=== PATIENT | female | born 1990 | race Caucasian/White ===

== ENCOUNTER 2016-07-30 05:10 | Inpatient (IN) | payer BC ==
[~2016-07-30] VITALS: Ht 162.6 cm; Wt 126.3 kg
[2016-07-30] MEDS ORDERED: PRENTAB26 PO (06:04)
[2016-07-30 06:05] VITALS: Ht 162.6 cm; Wt 126.3 kg
[2016-07-30] MEDS ORDERED: LACTATED RINGER'S 1000ML 1,000 ML IV PRN (06:12)
[2016-07-30] MEDS ORDERED: LACTATED RINGER'S 1000ML 500 ML IV PRN ×2 (06:39→10:45)
[2016-07-30] MEDS ORDERED: OXYTOCIN 30 UNITS/500ML NSS IV PRN ×2 (06:45→18:00)
[2016-07-30] MEDS: LACTATED RINGER'S 1000ML 1,000 ML IV SCH ×3 (06:52→16:12)
[2016-07-30 06:55] LABS: HEMATOCRIT 38.1 % (37-47); MEAN CELL VOLUME 83.9 fL (80-100); MEAN CORPUSCULAR HEMOGLOBIN 28.9 pg (25-34); MEAN CORPUSCULAR HGB CONC 34.4 g/dl (32-36); PLATELET COUNT 304 K/uL (130-400); RED BLOOD COUNT 4.54 M/uL (4.2-5.4); WHITE BLOOD COUNT 14.28 K/uL (4.8-10.8)
[2016-07-30] MEDS ORDERED: INFLUENZA ADMINISTRATION CHARGE ONE (08:00)
[2016-07-30] MEDS ORDERED: INFLUENZA VIRUS QUAD VACCINE 0.5 ML SYR IM. ONE (08:00)
[2016-07-30] MEDS ORDERED: EpHEDrine SULFATE INJ 50 MG/ML AMP ONE (09:54)
[2016-07-30] MEDS ORDERED: FENTANYL 2MCG/ML ROPIV 1.25MG/ML 100ML BAG EPI ONE (09:54)
[2016-07-30] MEDS ORDERED: BUPIVACAINE 0.25% 30 ML VIAL ONE (09:54)
[2016-07-30] MEDS: FENTANYL CITRATE INJ 50 MCG/1 ML 2 ML VIAL ONE ×2 (10:00→10:37)
[2016-07-30] MEDS ORDERED: ONDANSETRON INJ 2 MG/ML 2 ML VIAL IV PRN (10:45)
[2016-07-30] MEDS ORDERED: NALOXONE HCL INJ 0.4 MG/1 ML VIAL/CARP IV PRN (10:45)
[2016-07-30] MEDS ORDERED: FENTANYL 2MCG/ML ROPIV 1.25MG/ML 100ML BAG EPI PRN (10:45)
[2016-07-30] MEDS ORDERED: NALBUPHINE HCL INJ 10 MG/ML AMP IV PRN (10:45)
[2016-07-30] MEDS ORDERED: DiphenhydrAMINE HCL 50 MG/ML VIAL IV PRN (10:45)
[2016-07-30] MEDS ORDERED: NALOXONE HCL INJ 1 MG in SODIUM CHLORIDE 0.9% 1000ML 1,000 ML IV PRN (10:45)
[2016-07-30] MEDS ORDERED: EpHEDrine SULFATE INJ 50 MG/ML AMP IV PRN (10:45)
[2016-07-30] MEDS ORDERED: BENZOCAINE 20% AER SPR 82.5 GM CAN EXT PRN (18:00)
[2016-07-30] MEDS ORDERED: LANOLIN OINT EXT PRN ×2 (18:00)
[2016-07-30] MEDS ORDERED: SUPERCREAM 0.870 % 15GM JAR EXT PRN (18:00)
[2016-07-30] MEDS ORDERED: HYDROCORTISONE ACETATE 25 MG SUPP PR PRN (18:00)
[2016-07-30] MEDS ORDERED: ACETAMINOPHEN/CODEINE 300/30MG TAB PO PRN ×2 (18:00)
--- NOTE | 2016-07-30 18:25 | Anesthesia Procedure Note ---
Anesthesia Epidural Removal Nt Date & Time Jul 30, 2016 at 18:24 Vital Signs Pain Intensity: 0.0 Notes Mental Status: alert / awake / arousable, participated in evaluation Nausea / Vomiting: adequately controlled Pain: adequately controlled Airway Patency, RR, SpO2: stable & adequate BP & HR: stable & adequate Hydration State: stable & adequate Neuraxial Anesthesia: was administered, sensory block is resolving Anesthetic Complications: no major complications apparent, pt satisfied with anesthetic care Epidural: removed without complications, with tip intact
[2016-07-30] MEDS: DOCUSATE SODIUM 100 MG CAP PO SCH ×2 (20:00→21:00)
--- NOTE | 2016-07-30 20:04 | DELIVERY SUMMARY ---
DATE OF OPERATION: 07/30/2016 DELIVERING SURGEON: Heide French DO PREOPERATIVE DIAGNOSES: 1. A 26-year-old GI, P0 at 38 weeks 0 days. 2. Premature rupture of membranes. 3. 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 4. History of chlamydia during with negative test of cure at 36 weeks. POSTDELIVERY DIAGNOSES: Same. FINDINGS: Viable female , Apgars 9 and 10, weight pending. ESTIMATED BLOOD LOSS: 400 mL. PROCEDURE: Spontaneous vaginal delivery with repair of first degree perineal laceration. DESCRIPTION OF DELIVERY: The patient progressed to complete with epidural anesthesia. She spontaneously vaginally delivered over an intact perineum a viable female in the left occiput anterior position. The head delivered, followed by a nuchal cord x1 that was easily reduced with a compound hand. The anterior shoulder was delivered, followed by the posterior shoulder, followed by the body. The baby was warmed and dried and a spontaneous cry was heard. The baby was placed on mom's abdomen and the cord was doubly clamped and cut. A segment was sent for cord gases. Cord blood was obtained. The placenta was then delivered spontaneously intact with a 3-vessel cord. Pitocin was started. The uterus became firm. The uterus and vagina were cleared of all clots and debris. The cervix, vagina and perineum were inspected and a first degree perineal laceration was noted, this was repaired in standard fashion with 3-0 Vicryl. Excellent hemostasis was observed. All instrument, sponge, and needle counts were correct x2 at the conclusion of the delivery. Mom and baby recovered in the room in stable and good condition. I attest to the content of the Intraoperative Record and any orders documented therein. Any exceptio ns are noted below.
[2016-07-30 20:15] VITALS: BP 129/63; PULSE 109; TEMP 36.8
[2016-07-31 03:25] VITALS: BP 115/71; PULSE 92; TEMP 36.4
--- NOTE | 2016-07-31 07:44 | Progress Note ---
Subjective Jul 31, 2016. Subjective conversation w/ patient, physical exam Ambulation: ambulating normally Voiding: no voiding problems Passing Gas: Yes Diet Tolerance: Clear Liquids Lochia: Small Feeding Type: Breast Feeding Pain: Pain well controlled Review of Systems Constitutional: No fever Respiratory: No cough Abdomen: No pain Female : No dysuria Objective Vital Signs Date Time Temp Pulse Resp B/P Pulse Ox O2 Delivery O2 Flow Rate FiO2 07/31/16 03:25 Room Air 07/31/16 03:25 36.4 92 16 115/71 Room Air 07/30/16 20:15 36.8 109 18 129/63 Room Air Physical Exam General Appearance: WELL-APPEARING Abdomen: non tender, soft Fundus: Firm, Relation to Umbilicus (At umbilicus) Extremities: no calf tenderness, + swelling (trace edema in legs) Laboratory Results Last 24 Hours Test 07/31/16 07:30 Assessment and Plan Problem List Medical Problems: (1) Ovarian cyst during Status: Acute (2) Pelvic pain affecting in first trimester, antepartum Status: Acute (3) UTI (urinary tract infection) Status: Acute (4) Vomiting affecting , antepartum Status: Acute Post- Day#: 1 Continue Routine Care: - Vital Signs reviewed and WNL (temp max 36.4) - Blood Type: A+, GBS- , Rubella Immune - Patient doing well clinically - Encourage Ambulation today - Pain well controlled with Motrin - Tolerating PO Diet Well Resident Physician Supervision Note: I was present with Dr. Porter during the history and exam. I discussed the case with the resident and agree with the findings and plan as documented in the note. Any exceptions or clarifications are listed here: PPD#1 doing well. Routine care. Documented By: Heide French
[2016-07-31 07:55] VITALS: BP 120/80; PULSE 88; TEMP 36.8
[2016-07-31] MEDS: DOCUSATE SODIUM 100 MG CAP PO SCH ×2 (09:00→21:13)
[2016-07-31 12:00] VITALS: BP 114/79; PULSE 89; TEMP 36.7
[2016-07-31] MEDS: IBUPROFEN 600 MG TAB PO PRN ×3 (12:08→21:13)
[2016-07-31] MEDS ORDERED: NURSING VERBAL MED ORDER ONE (13:15)
[2016-07-31] MEDS ORDERED: DIPHTHERIA/TETANUS/PERTUSSIS 0.5 ML SYR/VIAL IM. ONE (13:45)
[2016-07-31 15:52] VITALS: BP 108/74; PULSE 83; TEMP 36.6; O2SAT 98
[2016-07-31] MEDS ORDERED: BISACODYL 5 MG TABEC PO SCH (20:00)
[2016-08-01] VITALS: BP 116/76; PULSE 78; TEMP 36.4; O2SAT 98
[2016-08-01] MEDS: IBUPROFEN 600 MG TAB PO PRN (05:57)
--- NOTE | 2016-08-01 06:35 | Progress Note ---
Subjective Aug 01, 2016. Subjective conversation w/ patient, physical exam Ambulation: ambulating normally Voiding: no voiding problems Passing Gas: Yes Diet Tolerance: Regular Diet Lochia: Small Feeding Type: Breast Feeding Pain: No pain reported this morning Review of Systems Constitutional: No chills, No fever Respiratory: No cough, No shortness of breath Cardiac: No chest pain Breast: No breast pain Abdomen: No nausea, No pain, No vomiting Female : No dysuria Objective Vital Signs Date Time Temp Pulse Resp B/P Pulse Ox O2 Delivery O2 Flow Rate FiO2 08/01/16 00:00 98 Room Air 08/01/16 00:00 36.4 78 18 116/76 98 Room Air 07/31/16 15:52 36.6 83 18 108/74 98 Room Air 07/31/16 15:30 Room Air 07/31/16 12:00 36.7 89 16 114/79 Room Air 07/31/16 07:55 36.8 88 18 120/80 Room Air 07/31/16 07:30 Room Air Physical Exam General Appearance: WELL-APPEARING, WD/WN, NO APPARENT DISTRESS Respiratory/Chest: lungs clear, normal breath sounds Cardiovascular: regular rate, rhythm, no gallop, no murmur Abdomen: normal bowel sounds, non tender, soft Fundus: Firm, Relation to Umbilicus (1cm below umbilicus) Extremities: normal range of motion (right inguinal pain, no mass), no calf tenderness Laboratory Results Last 24 Hours Test 07/31/16 07:30 Hemoglobin 12.2 g/dL Hematocrit 36.0 % Assessment and Plan Problem List Medical Problems: (1) Ovarian cyst during Status: Acute (2) Pelvic pain affecting in first trimester, antepartum Status: Acute (3) UTI (urinary tract infection) Status: Acute (4) Vomiting affecting , antepartum Status: Acute Post- Day#: 2 Continue Routine Care: - Vital Signs reviewed and WNL (temp max 36.4) - Blood Type: A+, GBS- , Rubella Immune - Patient doing well clinically - Encourage Ambulation today - Pain well controlled with Motrin - Tolerating PO Diet Well - Discharge today Resident Physician Supervision Note: I interviewed and examined the patient. Discussed with Dr. Porter and agree with findings and plan as documented in the note. Any exceptions or clarifications are listed here: Pt with right hip/inguinal pain, pre-dating the . Discussed NSAID/Ice/Heat. Will re-evaluate at 6 week post visit Documented By: Viral Melendrez
--- NOTE | 2016-08-01 06:36 | Discharge Instructions ---
Discharge Instructions Admission Reason for Admission: LABOR Discharge Discharge Diagnosis / Problem: Vaginal Delivery Discharge Goals Goal(s): Routine recovery after delivery Medications Continue Dispensed Medications: supercream, dermaplast, tucks, lansinoh Activity Recommendations Activity Limitations: per Instructions/Follow-up section . Instructions / Follow-Up Instructions / Follow-Up ACTIVITY RECOMMENDATIONS: * Gradual return to full activity over the next 2-3 weeks. * No lifting - nothing heavier than baby over the next 2-3 weeks. * Do not engage in vigorous exercise, sexual activity or sports until cleared by your physician. * Do not drive or operate any motorized equipment until cleared by your physician. * You may shower/bathe daily. MEDICATIONS: For discomfort or pain, you may use Acetaminophen (Tylenol), Ibuprofen (Advil), or Naproxen (Aleve) following the package directions. For constipation you may use Colace following the package directions. BREAST CARE: If you are not breast feeding: * Wear a supportive bra 24 hours a day for one to two weeks. * Avoid stimulating your breasts and nipples as much as possible during the first few weeks after delivery. * When taking a shower, have the warm water hit your back, not breasts. * When your breasts feel full, apply ice packs. Usually three to four times a day helps ease the discomfort. * Take a mild pain medication (Tylenol / Motrin) when you are uncomfortable. If breast feeding: * Use breast milk to lubricate nipples. Lansinoh cream may be used for sore nipples. You do not need to remove cream prior to breast feeding. If using a different brand of cream, check the label for directions regarding removal of cream prior to nursing. * Wear a supportive bra. * If having problems with breasts or breast feeding, call a middleware consultant or your health care provider. EPISIOTOMY CARE: After delivery, if you have an episiotomy (stitches), the following steps will ease discomfort and aid healing. * For the first 24 hours after delivery, place ice packs next to your episiotomy to help reduce swelling. * After the first 24 hour-period, sitz baths, either portable or in the tub, are suggested. A shower with a shower arm sprayed over the episiotomy may be comforting. * [place] care should be done after each voiding and bowel movement. Squirt warm water from a plastic bottle over the perineum (region of the body between the anus and urinary opening) and pat dry. * Use Dermoplast to ease discomfort. Shake container. [place] directly over the episiotomy. Place a Tucks on a clean sanitary pad next to your episiotomy. SPECIAL CARE INSTRUCTIONS: When you are discharged from the hospital, it is important for you to follow the instructions listed below: * During the first week at home, you should be able to care for yourself and your baby. In addition, the usual light household activities are encouraged. * Limit your activities to the way you feel. Do not try to clean the house or move furniture. Be sensible. * If you actively engage in sports and have done so up until the time of your delivery, you may resume these activities as soon as you feel able. This may take up to one month or even longer. Use good judgment. * Continue to take your vitamins for at least six weeks after the of your baby. * Your diet need not be limited unless you were on a special diet before your delivery. Breast-feeding mothers need around 2500 calories per day and at least 64-80 ounces of fluid per day (8 to 10 glasses). * You should eat foods from the four major food groups. Crash diets or fad diets are to be avoided. Eating lean meats, fresh fruits and vegetables, low-fat dairy products, high fiber foods and a regular exercise program, will help you get back to your pre- weight without putting your health at risk. * Constipation is sometimes a problem after delivery. Take a mild laxative as needed. If breast feeding, Milk of Magnesia is acceptable to use. You may use a suppository or Fleets enema if no episiotomy. * A daily shower or tub bath is suggested. Be sure to thoroughly and gently dry the perineum. * A bloody vaginal discharge will usually continue until around four weeks post . A small amount of bleeding may continue for as long as six weeks. Vaginal discharge changes from the bright red bleeding after delivery to pink then brownish and finally yellowish-pink before becoming white and disappearing. * Bleeding may increase with activity. Your first period may come in 4-8 weeks. If you are breast feeding, your period may be delayed even longer. * [place] (sex) can begin whenever both you and your partner feel comfortable and do not have any form of genital infection. It is recommended that you wait at least six weeks for internal and external healing to occur. If you have questions, please talk to your health care practitioner. A condom should be used to prevent infection and . * Foreplay, gentle intercourse and lubrication is very important the first several times to prevent pain. A water-based lubricant such as K-Y jelly or Astroglide may be used. * If you have RH negative blood and your baby is RH positive, you will receive RHOGAM by injection prior to discharge. The nurse will give you a card to keep with you that has the date and place that you received RHOGAM after delivery. * During your care, you had a Rubella screen done to check for the presence of rubella antibodies in your blood. If your test was negative, you will receive a Rubella vaccine prior to discharge. This vaccine may cause a fever, soreness at the injection site and flu-like symptoms. If these symptoms persist, notify your health care practitioner. is not advised for one month after a Rubella vaccine. * Verbalizes understanding of car seat law as reviewed with patient nursing. * Car Seat hand-out given and reviewed with patient by nursing. * Shaken baby information reviewed with patient by nursing. Call you doctor if: * Heavy bleeding (saturating several pads an hour) or passing clots the size of your fist. * A fever >101 degrees F (38.3 degrees C) on two occasions four hours apart and /or chills. * Unusual pain in the pelvic or vaginal areas. * "Baby Blues" lasting longer than two weeks. If you have any questions or concerns, call your health care practitioner at . FOLLOW UP VISIT: * Please call the office at to schedule a 6 week examination. It is important you keep this appointment. It is important for you to make arrangements for either yearly or twice yearly check-ups thereafter. Current Hospital Diet Patient's current hospital diet: Regular OB Diet Discharge Diet Recommended Diet: Regular Diet Pending Studies Studies pending at discharge: no Medical Emergencies . Who to Call and When: Medical Emergencies: If at any time you feel your situation is an emergency, please call 911 immediately. . Non-Emergent Contact Non-Emergency issues call your: Regional Operations Director . . "Provider Documentation" section prepared by Jose Porter. VTE Core Measure Inpt VTE Proph given/why not?: Treatment not indicated
[2016-08-01 06:45] VITALS: BP 116/77; PULSE 89; TEMP 36.4; O2SAT 97
[2016-08-01] MEDS: DOCUSATE SODIUM 100 MG CAP PO SCH (08:59)
[2016-08-01 12:48] VITALS: BP_DIAS 77; PULSE 89; TEMP 36.4
== END 2016-08-01 12:00 | disposition home or self-care (01) | DRG 775 ==
LOC: C.LD 05:10 → C.OPB 05:10 → C.LD 06:14 → C.MS4N 20:20
PROVIDERS: ADMIT Obstetrics & Gynecology; ATTEND Obstetrics & Gynecology
PROC: 10E0XZZ Delivery of Products of Conception, External Approach (ICD-10-PCS; principal; 2016-07-30)
PROC: 0HQ9XZZ Repair Perineum Skin, External Approach (ICD-10-PCS; principal; 2016-07-30)
PROC: 3E033VJ Introduction of Other Hormone into Peripheral Vein, Percutaneous Approach (ICD-10-PCS; principal; 2016-07-30)
DX: O42.02 Full-term premature rupture of membranes, onset of labor within 24 hours of rupture (principal); Z68.42 Body mass index [BMI] 45.0-49.9, adult; O70.0 First degree perineal laceration during delivery; O69.81X0 Labor and delivery complicated by cord around neck, without compression, not applicable or unspecified; O99.214 Obesity complicating childbirth; E66.9 Obesity, unspecified; Z37.0 Single live birth; Z3A.38 38 weeks gestation of pregnancy; Z23 Encounter for immunization

== ENCOUNTER → 2016-09-26 | Outpatient (CLI) | payer BC ==
[~2016-09-26] VITALS: Ht 162.6 cm; Wt 112.2 kg
[~2016-09-26] MED LIST: PRENTAB26 PO
[2016-09-26 09:46] VITALS: BP 119/76; PULSE 115; O2SAT 97; Ht 162.6 cm; Wt 112.2 kg
[2016-09-26 10:50] LABS: PREG INTERNAL NEGATIVE QC NEG CLEAR BACKGROUND; PREG INTERNAL POSITIVE QC POS CONTROL LINE
== END | disposition home or self-care (01) ==
LOC: C.EDA 09:44 → EDSTATUS 10:03 → C.LAB 10:06
PROVIDERS: ATTEND Obstetrics & Gynecology
DX: Z30.9 Encounter for contraceptive management, unspecified (principal)

== ENCOUNTER → 2016-10-15 | Outpatient (CLI) | payer BC ==
--- NOTE | 2016-10-15 10:44 | DIAGNOSTIC IMAGING REPORT ---
AP PELVIS AND BILATERAL HIPS 5 VIEWS CLINICAL HISTORY: Bilateral hip and pelvic pain COMPARISON STUDY: No previous studies for comparison. FINDINGS: There is an indwelling IUD. No pelvic fractures are visualized. The joint spaces of each hip appear well-preserved. There are no erosive or destructive changes. There is an eggshell calcification in the right gluteal region, likely representing an injection granuloma. IMPRESSION: No significant bony abnormalities. Electronically signed by: Giovany Daniel M.D. 10/15/2016 10:43 AM Dictated Date/Time: 10/15/2016 10:42 AM
== END | disposition home or self-care (01) ==
LOC: C.RAD1850 10:05
PROVIDERS: ATTEND Obstetrics & Gynecology
DX: M25.551 Pain in right hip (principal)